=== PATIENT | female | born 2005 | race Caucasian/White ===

== ENCOUNTER 2023-11-28 20:44 | Outpatient (CLI) | payer MEDICAID, OTHER | END 2023-11-28 20:45 | disposition left against medical advice (07) | LOC: EMS 20:44 | DX: M25.552 Pain in left hip (principal); Y04.8XXA Assault by other bodily force, initial encounter; Y92.009 Unspecified place in unspecified non-institutional (private) residence as the place of occurrence of the external cause ==

== ENCOUNTER 2024-05-17 21:16 | Emergency (ER) | payer MEDICAID, OTHER ==
[2024-05-17 21:33] VITALS: BP 119/68; O2SAT 97
== END 2024-05-17 21:48 | disposition left against medical advice (07) ==
LOC: ED 21:16
DX: Z53.21 Procedure and treatment not carried out due to patient leaving prior to being seen by health care provider (principal)

== ENCOUNTER 2024-08-09 12:45 | Outpatient (CLI) | payer MEDICAID | END 2024-08-09 13:00 | disposition home or self-care (01) | LOC: LAB.N 12:45 | PROVIDERS: ATTEND Physician Assistant | DX: R19.7 Diarrhea, unspecified (principal) | CPT/HCPCS: 36415; 82784; 86231; 86364 ==